=== PATIENT | female | born 1990 | race Caucasian/White ===

== ENCOUNTER 2020-01-04 22:12 | Emergency (ER) | payer BC, MEDICAID ==
[~2020-01-04] VITALS: Ht 162.6 cm; Wt 57.3 kg
--- NOTE | 2020-01-04 22:24 | NUR ---
Last tetanus booster 14 years ago
[2020-01-04] MEDS ORDERED: TETanus/Pertussis (Acell)/Diphther VAC/PF (Tdap-Adult) 0.5ml syringe IMVAC ONE (22:25)
[2020-01-04] MEDS ORDERED: HYDROcodone/acetaminophen 5mg/325mg tablet PO ONE (22:55)
[2020-01-04] MEDS ORDERED: LIDOcaine 1% W/epiNEPHrine 1:200,000 10ml vial IJ ONE ×2 (23:05→23:10)
[2020-01-04] MEDS ORDERED: HYDROcodone/acetaminophen 10/325mg tab PO ONE (23:05)
[2020-01-05] MEDS ORDERED: AMOX-117 PO (00:03)
[2020-01-05] MEDS ORDERED: HYDR-3965 PO (00:15)
[2020-01-05 00:20] VITALS: BP 123/77
== END 2020-01-05 00:34 | disposition home or self-care (01) ==
LOC: ER 22:13
DX: S91.332A Puncture wound without foreign body, left foot, initial encounter (principal); Z79.2 Long term (current) use of antibiotics; W22.8XXA Striking against or struck by other objects, initial encounter; Y93.89 Activity, other specified; Y92.89 Other specified places as the place of occurrence of the external cause; Y99.8 Other external cause status
CPT/HCPCS: 73630; 90471; 90715; 99283